=== PATIENT | female | born 1970 | race Caucasian/White ===

== ENCOUNTER 2016-11-04 05:11 | Day surgery (SDC) | payer BC ==
[2016-11-03 13:07] VITALS: BMI 24.4
[2016-11-04] MEDS ORDERED: LIDOCAINE HCL 1%, 10 MG/ML (20ML VIAL) ONE (07:09)
[2016-11-04] MEDS ORDERED: BUPIVACAINE HCL/PF 0.5% (5MG/ML) 10 ML VIAL ONE (07:10)
[2016-11-04] MEDS ORDERED: LIDOCAINE 1%/EPI 1:100000 (50 ML MULTI DOSE VIAL) ONE (07:10)
[2016-11-04] MEDS ORDERED: LIDOCAINE HCL 1%, 10 MG/ML (50 mL VIAL) IJ ONE (08:00)
[2016-11-04] MEDS ORDERED: LIDOCAINE 2%/EPINEPHRINE 1:100000 (50 ML MD VIAL) INF ONE (08:00)
[2016-11-04] MEDS ORDERED: BUPIVACAINE HCL/PF 0.5% (5MG/ML) 10 ML VIAL IJ ONE (08:23)
[2016-11-04] MEDS ORDERED: ACETAMINOPHEN WITH CODEINE 300MG/30MG TABLET PO PRN (08:33)
--- NOTE | 2016-11-04 08:33 | OP ---
Operative Note - Note: Operative Date: 11/04/16 Pre-Operative Diagnosis: R/O Malignant Melanoma Plantar Central and Sub met 1 All Left foot Operation: Exscional Biopsy Findings: Consistant with above Diagnosis Surgeon: Ishaan Sharif Anesthesia: MAC Specimens Removed: Soft tissue x 2 Estimated Blood Loss (mls): 5 Operative Report Dictated: Yes
[2016-11-04 09:37] VITALS: BP 108/56; PULSE 55; TEMP 97.6
--- NOTE | 2016-11-04 09:56 | OP ---
DATE OF OPERATION: 11/04/2016 SURGEON: Lena Reeder DPM PREOPERATIVE DIAGNOSIS: Suspicious skin lesions x2, plantar central and sub-metatarsal 1, all left foot. POSTOPERATIVE DIAGNOSIS: Suspicious skin lesions x2, plantar central and sub-metatarsal 1, all left foot. NAME OF OPERATION: Excisional biopsy x2. ANESTHESIA: Local with IV sedation. FINDINGS: Consistent with the above diagnosis. WOUND CLASSIFICATION: Clean. ESTIMATED BLOOD LOSS: Minimal. SPECIMENS REMOVED: Soft tissue. DRAINS: There were no drains. COMPLICATIONS: No complications. INDICATIONS FOR THE PROCEDURE: The patient is a pleasant 46-year-old female who has a history of pigmented lesions suddenly appearing on the bottom of her left foot. She has a history of sun exposure for many years. She does not recall when these lesions started or ever seeing them before. These lesions were watched over time, and it was noted that they changed in color and in shape. It was therefore recommended to the patient that she have an excisional biopsy to rule out malignant melanoma. The risks, benefits, and alternatives were explained to the patient several times on an outpatient basis. On her last outpatient visit, she decided that surgical management was the treatment that she desired. Patient presented this morning to [facility] for excisional biopsy x2 of suspicious lesions on the plantar aspect of her left foot. Once again, the risks, benefits, and alternatives were discussed. After all her questions were answered to her satisfaction, consent was obtained. After confirming the proper extremity to be operated on, it was then marked with my initials. The patient was then transported to the operating room. PROCEDURE FOLLOWS: The patient was identified, placed on the operating room table in the supine position and in good anatomical alignment. Time-out was called confirming the identity of the patient, the proper extremity to be operated on, and the nature of the procedure. Once confirmed, the patient was sedated by the anesthesiologist, and approximately 18 mL of a 50/50 mixture of 1% lidocaine plain and 1% lidocaine with epinephrine were infiltrated in a V-block fashion to the plantar central lesion and the lesion sub-metatarsal 1. The left foot was then prepped and draped in the usual sterile manner. Time-out was once again taken confirming the identity of the patient and the proper extremity and the nature of the procedure. Once confirmed, attention was then directed to a plantar aspect of the left foot, where utilizing a No. 15 blade, an excisional biopsy was performed. Two converging semielliptical incisions were made. The lesion on the plantar central aspect was excised down to the subcutaneous tissues. The specimen was then passed off from the surgical site, was given to the scrub nurse, and was properly labeled and sent to Pathology for growth and microscopic examination. Attention was then directed to the lesion sub-metatarsal 1, where the exact same procedure was performed. All surgical sites were then flushed with copious amounts of sterile saline. The surgical sites were closed with 3-0 Prolene. Both surgical sites were infiltrated with approximately 8 mL of 0.5% Marcaine plain. The surgical sites were then dressed with Betadine-soaked Adaptic, Betadine-soaked gauze, dry sterile gauze, and a Kimberly wrap. Patient tolerated all aspects of the procedure and anesthesia well. Patient left the operating room with hemostasis under control, and the needle, sponge, and instrument count noted to be correct. Patient was discharged to home with a postoperative shoe, postoperative instructions, and a cane. Keflex antibiotic as well as Percocet pain medications E-prescribed to her pharmacy and confirmed as received. [facility] 8 days. LENA DURAN DPM [id number]
--- NOTE | 2016-11-07 10:23 | PATH ---
Surgical Pathology Report Patient Name: JACQUELINE WHALEN [facility]. Rec. #: [id number] /Age/Gender: 1970 (Age: 46) / F Account: [id number] Location: [facility] Taken: 11/04/2016 Received: 11/04/2016 Reported: 11/07/2016 Physicians: Ishaan Sharif DPM Specimen(s) Received A: BX PLANTAR LEFT FOOT B: BX SUB 1ST METATARSAL LEFT FOOT Clinical History Malignant melanoma Final Diagnosis A. SKIN, LEFT FOOT CENTRAL PLANTAR, BIOPSY: VERRUCA. NO MELANOCYTIC NEOPLASM IDENTIFIED. B. SKIN, LEFT SUB-FIRST METATARSAL, BIOPSY: VERRUCA. NO MELANOCYTIC NEOPLASM IDENTIFIED. Electronically Signed Pablo Devi M.D. Gross Description A. Received in formalin, labeled "biopsy plantar central left foot," is a 0.4 cm in diameter palacios, circular skin punch biopsy excised to depth of 0.4 cm. The epidermal surface displays a 0.3 x 0.2 cm brown pigmented lesion. The underlying tissue is inked green and the specimen is bisected and entirely submitted in one cassette. B. Received in formalin, labeled "biopsy sub-first metatarsal left," is a 0.4 cm in diameter palacios, circular skin punch biopsy excised to depth of 0.4 cm. The underlying tissue is inked green and the specimen is bisected and entirely submitted in one cassette. 11/04/201611/04/2016
== END 2016-11-04 10:00 | disposition home or self-care (01) ==
LOC: JASU-SURG 05:11
PROVIDERS: ATTEND Podiatrist Foot & Ankle Surgery
PROC: 0HBNXZX Excision of Left Foot Skin, External Approach, Diagnostic (ICD-10-PCS; principal; 2016-11-04 08:00)
DX: B07.9 Viral wart, unspecified (principal); L98.9 Disorder of the skin and subcutaneous tissue, unspecified
CPT/HCPCS: 88305-TC; 97116-GP

== ENCOUNTER 2017-03-15 12:19 | Emergency (ER) | payer BC ==
[2017-03-15 12:24] VITALS: BP 137/78; PULSE 72; TEMP 97.7; BMI 24.3
[2017-03-15] MEDS ORDERED: TOBRAMYCIN 0.3% OPHTH SOLN 5 ML BOTTLE OD ONE (12:52)
[2017-03-15] MEDS ORDERED: TOBRAMYCIN 0.3% OPHTH SOLN 5 ML BOTTLE ONE (12:56)
--- NOTE | 2017-03-15 13:00 | PDOC ---
History of Present Illness - General Chief Complaint: Sore Throat Stated Complaint: SORE THROAT/POSSIBLE PINK EYE Time Seen by Provider: 03/15/17 12:30 History Source: Patient Exam Limitations: No Limitations Past History - Past Medical History Allergies/Adverse Reactions: Allergies Allergy/AdvReac Type Severity Reaction Status Date / Time No Known Allergies Allergy Verified 03/15/17 12:23 Anemia: No Asthma: No Cancer: No Cardiac Disorders: No CVA: No COPD: No CHF: No Dementia: No Diabetes: No (HYPOGLYCEMIA) GI Disorders: Yes (ulcer) Disorders: No HTN: No Hypercholesterolemia: No Liver Disease: No Seizures: No Thyroid Disease: No - Surgical History Orthopedic Surgery: Yes (bunionectomy) - Psycho/Social/Smoking Cessation Hx Anxiety: No Suicidal Ideation: No Smoking Status: Yes Smoking History: Former smoker Have you smoked in the past 12 months: No Number of Cigarettes Smoked Daily: 20 If you are a former smoker, when did you quit?: 6 YRS Information on smoking cessation initiated: No Hx Alcohol Use: No Drug/Substance Use Hx: No Substance Use Type: None Hx Substance Use Treatment: No *Physical Exam - Vital Signs Last Vital Signs Temp Pulse Resp BP Pulse Ox 97.7 F 72 20 137/78 100 03/15/17 12:21 03/15/17 12:21 03/15/17 12:21 03/15/17 12:21 03/15/17 12:21 - Physical Exam General Appearance: Yes: Nourished, Appropriately Dressed HEENT: positive: EOMI, ADRIANA, Pharyngeal Erythema, Other (right eye with discharge yellow crusted). 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 NML intact, Fully Oriented, Alert, Normal Mood/ Affect, Normal Response, Motor Strength 5/5 Medical Decision Making - Medical Decision Making 03/15/17 12:54 cc: right eye itchy, red with discharge, dry cough and sore throat for 2 days no fever no shortness of breath will swab for strep tobramycin right eye 03/15/17 13:20 *DC/Admit/Observation/Transfer Diagnosis at time of Disposition: Conjunctivitis of right eye due to adenovirus Pharyngitis Qualifiers: Pharyngitis/tonsillitis etiology: unspecified etiology Qualified Code(s): J02.9 - Acute pharyngitis, unspecified - Discharge Dispostion Disposition: HOME Condition at time of disposition: Good - Referrals Referrals: Eddie Helton MD [Primary Care Provider] - - Patient Instructions Additional Instructions: gargle with warm salt water 4-5 times a day take motrin as needed or tylenol for pain use the drops as directed, one drop every 4hrs for 3-5 days
== END 2017-03-15 13:49 | disposition home or self-care (01) ==
LOC: JERFT 12:19
DX: J02.9 Acute pharyngitis, unspecified (principal); B30.1 Conjunctivitis due to adenovirus; E16.2 Hypoglycemia, unspecified; Z87.891 Personal history of nicotine dependence
CPT/HCPCS: 87070; 87430; 99281-25

== ENCOUNTER 2017-06-28 09:41 | Emergency (ER) | payer BC ==
[2017-06-28 09:54] VITALS: BP 151/87; PULSE 87; TEMP 98.2; BMI 24.1
[2017-06-28] MEDS ORDERED: KETOROLAC TROMETHAMINE 60 MG/2 ML VIAL IM ONE (10:45)
[2017-06-28] MEDS ORDERED: KETOROLAC TROMETHAMINE 60 MG/2 ML VIAL ONE (10:47)
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
== END 2017-06-28 10:55 | disposition home or self-care (01) ==
LOC: JERFT 09:41
PROC: 3E0233Z Introduction of Anti-inflammatory into Muscle, Percutaneous Approach (ICD-10-PCS; principal; 2017-06-28)
DX: M77.11 Lateral epicondylitis, right elbow (principal)
CPT/HCPCS: 99281-25

== ENCOUNTER 2018-10-31 09:08 | Emergency (ER) | payer OTHER, BC ==
[2018-10-31 09:18] VITALS: BP 123/76; PULSE 85; TEMP 97.6; BMI 25.0
[2018-10-31] MEDS ORDERED: IBUPROFEN 600 MG TABLET (FP) PO ONE ×2 (09:21→09:22)
--- NOTE | 2018-10-31 09:21 | PDOC ---
History of Present Illness - General Chief Complaint: Injury Stated Complaint: FALL Time Seen by Provider: 10/31/18 09:21 History Source: Patient Exam Limitations: No Limitations Past History - Past Medical History Allergies/Adverse Reactions: Allergies Allergy/AdvReac Type Severity Reaction Status Date / Time No Known Allergies Allergy Verified 06/28/17 09:54 Home Medications: Ambulatory Orders NK [No Known Home Medication] 10/31/18 Anemia: No Asthma: No Cancer: No Cardiac Disorders: No CVA: No COPD: No CHF: No Dementia: No Diabetes: No (HYPOGLYCEMIA) GI Disorders: Yes (ulcer) Disorders: No HTN: No Hypercholesterolemia: No Liver Disease: No Seizures: No Thyroid Disease: No - Surgical History Orthopedic Surgery: Yes (bunionectomy) - Suicide/Smoking/Psychosocial Hx Smoking Status: Yes Smoking History: Never smoked Have you smoked in the past 12 months: No Number of Cigarettes Smoked Daily: 20 If you are a former smoker, when did you quit?: 6 YRS AGO Information on smoking cessation initiated: No Hx Alcohol Use: No Drug/Substance Use Hx: No Substance Use Type: None Hx Substance Use Treatment: No *Physical Exam - Vital Signs Last Vital Signs Temp Pulse Resp BP Pulse Ox 97.6 F 85 20 123/76 99 10/31/18 09:12 10/31/18 09:12 10/31/18 09:12 10/31/18 09:12 10/31/18 09:12 Moderate Sedation - Procedure Monitoring Vital Signs: Procedure Monitoring Vital Signs Temperature 97.6 F 10/31/18 09:12 Pulse Rate 85 10/31/18 09:12 Respiratory Rate 20 10/31/18 09:12 Blood Pressure 123/76 10/31/18 09:12 O2 Sat by Pulse Oximetry (%) 99 10/31/18 09:12 *DC/Admit/Observation/Transfer Diagnosis at time of Disposition: Finger pain, right - Discharge Dispostion Disposition: HOME Condition at time of disposition: Stable Decision to Admit order: No - Referrals Referrals: Tyler Veloz MD [Staff Physician] - - Patient Instructions Printed Discharge Instructions: DI for Finger Sprain Additional Instructions: The x-ray of your fingers appear normal today. I do not see any broken bones. Please wear the donnie tape for support. Please ice the fingers for 20 minute intervals today. He may take Motrin 600 mg every 6 hours for pain or swelling. If her symptoms do not improve in 2-3 days please follow-up with orthopedics. A referral has been provided. Return to the ER for worsening pain, numbness and tingling in the hand, or if you have any changes in your symptoms. - Post Discharge Activity Forms/Work/School Notes: Back to Work
== END 2018-10-31 11:08 | disposition home or self-care (01) ==
LOC: JERFT 09:08
PROC: 2W3JXYZ Immobilization of Right Finger using Other Device (ICD-10-PCS; principal; 2018-10-31)
DX: M79.644 Pain in right finger(s) (principal); Z87.891 Personal history of nicotine dependence; E11.649 Type 2 diabetes mellitus with hypoglycemia without coma; W18.39XA Other fall on same level, initial encounter; Y93.89 Activity, other specified; Y92.89 Other specified places as the place of occurrence of the external cause
CPT/HCPCS: 73110-TC-RT-FY; 73130-TC-RT-FY; 99281-25

== ENCOUNTER 2019-01-18 10:45 | Emergency (ER) | payer BC, OTHER ==
[2019-01-18 10:59] VITALS: BP 119/74; PULSE 92; TEMP 98.1; BMI 23.3
[2019-01-18] MEDS ORDERED: ALBUTEROL SO4 2.5/IPRATROPIUM 0.5 INH SOL 3 ML VIAL.NEB. NEB ONE ×2 (11:14→11:17)
[2019-01-18] MEDS ORDERED: predniSONE 20 MG TABLET (UD) PO ONE (11:14)
[2019-01-18] MEDS ORDERED: predniSONE 20 MG TABLET (UD) ONE (11:17)
--- NOTE | 2019-01-18 11:40 | PDOC ---
History of Present Illness - General Chief Complaint: Cold Symptoms Stated Complaint: SORE THROAT, Time Seen by Provider: 01/18/19 11:03 History Source: Patient Exam Limitations: No Limitations - History of Present Illness Initial Comments: 01/18/19 11:40 States had onset of cough, runny nose, fevers and chills, episodes of defervescent this past week. HAs been using OTC medications with minumal resolve. Timing/Duration: reports: getting worse, intermittent Severity: reports: moderate Modifying Factors: improves with: activity, coughing Associated Symptoms: reports: chest pain/soreness, cough, fever/chills, nasal congestion, shortness of breath, wheezing Past History - Travel Traveled outside of the country in the last 30 days: No Close contact w/someone who was outside of country & ill: No - Past Medical History Allergies/Adverse Reactions: Allergies Allergy/AdvReac Type Severity Reaction Status Date / Time No Known Allergies Allergy Verified 01/18/19 10:49 Home Medications: Ambulatory Orders Albuterol Sulfate Inhaler - [Ventolin HFA Inhaler -] 1 - 2 inh PO Q4H #1 inhaler 01/18/19 Azithromycin [Zithromax -] 250 mg PO UTDICT #6 tab 01/18/19 predniSONE [Deltasone -] 20 mg PO BID #8 tablet 01/18/19 Anemia: No Asthma: No Cancer: No Cardiac Disorders: No CVA: No COPD: No CHF: No Dementia: No Diabetes: No (HYPOGLYCEMIA) GI Disorders: Yes (ulcer) Disorders: No HTN: No Hypercholesterolemia: No Liver Disease: No Seizures: No Thyroid Disease: No - Surgical History Orthopedic Surgery: Yes (bunionectomy) - Immunization History Immunization Up to Date: Yes - Suicide/Smoking/Psychosocial Hx Smoking Status: Yes Smoking History: Former smoker Have you smoked in the past 12 months: No Number of Cigarettes Smoked Daily: 20 If you are a former smoker, when did you quit?: 8YRS AGO Information on smoking cessation initiated: No Hx Alcohol Use: No Drug/Substance Use Hx: No Substance Use Type: None Hx Substance Use Treatment: No Review of Systems - Review of Systems Able to Perform ROS?: Yes Is the patient limited Maltese proficient: Yes Constitutional: Yes: Symptoms Reported, See HPI, Malaise HEENTM: Yes: Symptoms Reported, See HPI, Nose Congestion Respiratory: Yes: Symptoms reported, See HPI, Cough, Wheezing ABD/GI: No: Symptoms Reported : No: Symptoms Reported Neurological: Yes: Symptoms reported, See HPI, Headache (mild frontal ) All Other Systems: Reviewed and Negative *Physical Exam - Vital Signs Last Vital Signs Temp Pulse Resp BP Pulse Ox 98.1 F 92 H 17 119/74 99 01/18/19 10:49 01/18/19 10:49 01/18/19 10:49 01/18/19 10:49 01/18/19 10:49 - Physical Exam General Appearance: Yes: Nourished, Appropriately Dressed, Apparent Distress, Mild Distress HEENT: positive: ADRIANA, TMs Normal (congested but landmarks visualized), Nasal Congestion, Rhinorrhea. negative: Normal ENT Inspection, Pharyngeal Erythema Neck: positive: Supple. negative: Tender, Lymphadenopathy (R), Lymphadenopathy (L) Respiratory/Chest: positive: Decreased Breath Sounds (worse on right side ), Wheezing (diminished but some tight inspiratory breath sounds). 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 Much improved and better aeration after DuoNeb and prednisone. We'll continue .We'll treat with Z- Junaid, continue albuterol and prednisone for hyperactive airway *DC/Admit/Observation/Transfer Diagnosis at time of Disposition: Bronchitis - Discharge Dispostion Disposition: HOME Condition at time of disposition: Stable Decision to Admit order: No - Prescriptions Prescriptions: Albuterol Sulfate Inhaler - [Ventolin HFA Inhaler -] 1 - 2 inh PO Q4H #1 inhaler Azithromycin [Zithromax -] 250 mg PO UTDICT #6 tab predniSONE [Deltasone -] 20 mg PO BID #8 tablet - Referrals Referrals: Minh Rodriguez MD [Primary Care Provider] - - Patient Instructions Printed Discharge Instructions: DI for Acute Bronchitis Additional Instructions: Rest, drink lots of fluids: Teas, water, soups, Pedialyte Saltwater gargles Steamy showers/seem to face break up mucus Avoid contact with others until fevers and cough resolved Lots of handwashing and good hygiene Continue [id number] medications for symptomatic relief Tylenol or Motrin for fever and pain Continue albuterol inhaler every 4-6 hours for the next 2 days then as needed for continued cough Prednisone as directed until completed Azithromycin as directed Followup with private physician in one to 2 days Return to emergency department / pediatric hospital for worsened symptoms, fevers, dehydration - Post Discharge Activity
--- NOTE | 2019-01-19 14:24 | EKG ---
Test Reason : Blood Pressure : / mmHG Vent. Rate : 087 BPM Atrial Rate : 087 BPM P-R Int : 140 ms QRS Dur : 080 ms QT Int : 354 ms P-R-T Axes : 059 050 043 degrees QTc Int : 425 ms NORMAL SINUS RHYTHM POSSIBLE LEFT ATRIAL ENLARGEMENT BORDERLINE ECG NO PREVIOUS ECGS AVAILABLE Confirmed by MD NATHAN, TIAGO ([id number]) on 01/19/2019 2:23:55 PM Referred By: Confirmed By:TIAGO EVANS MD
== END 2019-01-18 12:08 | disposition home or self-care (01) ==
LOC: JERFT 10:45 → JER 10:45 → JERFT 12:08
PROC: 3E0F7GC Introduction of Other Therapeutic Substance into Respiratory Tract, Via Natural or Artificial Opening (ICD-10-PCS; principal; 2019-01-18)
DX: J20.9 Acute bronchitis, unspecified (principal)
CPT/HCPCS: 71046-TC-FY; 93005; 93010; 99281-25

== ENCOUNTER 2020-09-10 13:36 | Emergency (ER) | payer BC ==
[2020-09-10 13:51] VITALS: TEMP 97.2; BMI 25.2
[2020-09-10] MEDS ORDERED: SODIUM CHLORIDE 1,000 ML IV STA (14:57)
[2020-09-10] MEDS ORDERED: ACETAMINOPHEN 325 MG TABLET (FP) PO ONE (14:57)
[2020-09-10] MEDS ORDERED: ACETAMINOPHEN 325 MG TABLET (FP) ONE (15:10)
[2020-09-10 15:24] LABS: HEMATOCRIT 40.1 % (32.4-45.2); HEMOGLOBIN 13.1 GM/dL (10.7-15.3); MCH 29.4 pg (25.7-33.7); MCHC 32.8 g/dl (32.0-36.0); MEAN CELL VOLUME 89.9 fl (80-96); MEAN PLT VOLUME 9.4 fl (7.5-11.1); PLATELET COUNT 284 K/MM3 (134-434); RBC 4.46 M/mm3 (3.60-5.2); RDW 14.6 % (11.6-15.6); WHITE BLOOD COUNT 8.6 K/mm3 (4.0-10.0)
[2020-09-10 15:40] LABS: CHLORIDE 107 mmol/L (98-107); SODIUM 141 mmol/L (136-145)
[2020-09-10 15:42] LABS: CALCIUM 9.4 mg/dL (8.5-10.1)
[2020-09-10 15:43] LABS: ANION GAP 9 MMOL/L (8-16); BLOOD UREA NITROGEN 8.7 mg/dL (7-18); CO2 24 mmol/L (21-32); GLUCOSE,RANDOM 81 mg/dL (74-106)
[2020-09-10 15:44] LABS: ALBUMIN 4.2 g/dl (3.4-5.0)
[2020-09-10] MEDS ORDERED: SUMAtriptan SUCCINATE 50 MG TABLET PO SCH (15:45)
[2020-09-10 15:46] LABS: CREATININE 0.6 mg/dL (0.55-1.3); SGOT/AST 23 U/L (15-37); SGPT/ALT 21 U/L (13-61)
[2020-09-10 15:48] LABS: BILIRUBIN,TOTAL 0.5 mg/dL (0.2-1); TOT PROT 7.7 g/dl (6.4-8.2)
[2020-09-10 15:49] LABS: ALK PHOS 109 U/L (45-117)
[2020-09-10 16:04] LABS: MAGNESIUM 2.4 mg/dL (1.8-2.4)
[2020-09-10 16:08] LABS: PHOSPHOROUS 3.4 mg/dL (2.5-4.9)
[2020-09-10] MEDS ORDERED: SUMAtriptan SUCCINATE 50 MG TABLET ONE (16:58)
[2020-09-10] MEDS ORDERED: ONDANSETRON 4 MG/2 ML VIAL IVPUSH ONE (17:00)
[2020-09-10 17:43] LABS: URINE APPEARANCE CLEAR; URINE BILIRUBIN NEGATIVE (NEGATIVE); URINE COLOR YELLOW; URINE GLUCOSE (UA) NEGATIVE (NEGATIVE); URINE KETONE NEGATIVE (NEGATIVE); URINE LEUK ESTERASE NEGATIVE (NEGATIVE); URINE NITRITE NEGATIVE (NEGATIVE); URINE PROTEIN NEGATIVE (NEGATIVE); URINE UROBILINOGEN 0.2 mg/dL (0.2-1.0)
[2020-09-10] MEDS ORDERED: ONDANSETRON 4 MG/2 ML VIAL ONE (17:52)
[2020-09-10 19:42] VITALS: BP 111/98; PULSE 78
== END 2020-09-10 20:00 | disposition home or self-care (01) ==
LOC: JER 13:36
PROC: 3E033NZ Introduction of Analgesics, Hypnotics, Sedatives into Peripheral Vein, Percutaneous Approach (ICD-10-PCS; principal; 2020-09-10)
PROC: 3E0337Z Introduction of Electrolytic and Water Balance Substance into Peripheral Vein, Percutaneous Approach (ICD-10-PCS; 2020-09-10)
DX: R20.2 Paresthesia of skin (principal); R53.1 Weakness; R19.7 Diarrhea, unspecified; R51.9 Headache, unspecified
CPT/HCPCS: 36415; 70450-TC; 71045-TC-FY; 80053; 81003; 82550; 83735; 84100; 84443; 84484; 85027; 87086; 93005; 93010; 99285-25

== ENCOUNTER 2021-11-23 22:48 | Emergency (ER) | payer BC ==
[2021-11-23 23:07] VITALS: BP 114/70; PULSE 100; TEMP 97.6; BMI 27.8
[2021-11-23] MEDS ORDERED: SODIUM CHLORIDE 1,000 ML IV STA (23:18)
[2021-11-23] MEDS ORDERED: ACETAMINOPHEN 1000 MG/100 ML BAG IVPB ONE (23:19)
[2021-11-23] MEDS ORDERED: ACETAMINOPHEN INJECTION 100 ML IVPB ONE (23:49)
[2021-11-23 23:55] LABS: BASO % 0.5 % (0-2.0); EOS % 0.6 % (0-4.5); HEMATOCRIT 37.1 % (32.4-45.2); HEMOGLOBIN 12.4 GM/dL (10.7-15.3); MCH 29.3 pg (25.7-33.7); MCHC 33.5 g/dl (32.0-36.0); MEAN CELL VOLUME 87.2 fl (80-96); MEAN PLT VOLUME 8.5 fl (7.5-11.1); MONO % 6.5 % (3.8-10.2); NEUT % 72.4 % (42.8-82.8); PLATELET COUNT 283 10^3/uL (134-434); RBC 4.25 M/mm3 (3.60-5.2); RDW 13.8 % (11.6-15.6); WHITE BLOOD COUNT 11.4 K/mm3 (4.0-10.0)
[2021-11-23 23:56] LABS: URINE APPEARANCE TURBID; URINE BILIRUBIN NEGATIVE (NEGATIVE); URINE COLOR YELLOW; URINE GLUCOSE (UA) NEGATIVE (NEGATIVE); URINE KETONE TRACE (NEGATIVE); URINE LEUK ESTERASE NEGATIVE (NEGATIVE); URINE NITRITE NEGATIVE (NEGATIVE); URINE PROTEIN NEGATIVE (NEGATIVE)
[2021-11-24 00:04] LABS: PROTHROMBIN TIME (PATIENT) 11.5 SEC (9.7-13.0)
[2021-11-24 00:14] LABS: ALBUMIN 3.7 g/dl (3.4-5.0); BLOOD UREA NITROGEN 17.3 mg/dL (7-18)
[2021-11-24 00:17] LABS: CREATININE 0.7 mg/dL (0.55-1.3)
[2021-11-24 00:19] LABS: BILIRUBIN,TOTAL 0.6 mg/dL (0.2-1); TOT PROT 7.1 g/dl (6.4-8.2)
[2021-11-24] MEDS ORDERED: morphine CARPU-JECT 2 MG/1 ML DISP.SYRIN IVPUSH ONE ×2 (00:32→01:22)
[2021-11-24] MEDS ORDERED: METOCLOPRAMIDE HCL INJECTION 10 MG/2 ML VIAL IVPUSH ONE (00:36)
[2021-11-24] MEDS ORDERED: ONDANSETRON 4 MG/2 ML VIAL IVPB ONE (01:23)
[2021-11-24] MEDS ORDERED: ONDANSETRON 4 MG/2 ML VIAL ONE (01:31)
[2021-11-24] MEDS ORDERED: KETOROLAC TROMETHAMINE 15 MG/ML VIAL IVPUSH ONE (02:28)
[2021-11-24] MEDS ORDERED: KETOROLAC TROMETHAMINE 15 MG/ML VIAL ONE (02:28)
[2021-11-24] MEDS ORDERED: diazePAM 5 MG TABLET PO ONE (04:08)
[2021-11-24] MEDS ORDERED: DEXAMETHASONE SOD PHOSPHATE 10 MG/1 ML VIAL IVPUSH ONE (04:08)
[2021-11-24] MEDS ORDERED: DEXAMETHASONE SOD PHOSPHATE 10 MG/1 ML VIAL ONE (04:13)
[2021-11-24] MEDS ORDERED: diazePAM 5 MG TABLET ONE (04:13)
== END 2021-11-24 04:30 | disposition home or self-care (01) ==
LOC: JER 22:48
PROC: 3E0333Z Introduction of Anti-inflammatory into Peripheral Vein, Percutaneous Approach (ICD-10-PCS; principal; 2021-11-23)
PROC: 3E033GC Introduction of Other Therapeutic Substance into Peripheral Vein, Percutaneous Approach (ICD-10-PCS; 2021-11-23)
PROC: 3E0333Z Introduction of Anti-inflammatory into Peripheral Vein, Percutaneous Approach (ICD-10-PCS; 2021-11-23)
PROC: 3E033GC Introduction of Other Therapeutic Substance into Peripheral Vein, Percutaneous Approach (ICD-10-PCS; 2021-11-23)
PROC: 3E033NZ Introduction of Analgesics, Hypnotics, Sedatives into Peripheral Vein, Percutaneous Approach (ICD-10-PCS; 2021-11-23)
PROC: 3E033NZ Introduction of Analgesics, Hypnotics, Sedatives into Peripheral Vein, Percutaneous Approach (ICD-10-PCS; 2021-11-23)
PROC: 3E033GC Introduction of Other Therapeutic Substance into Peripheral Vein, Percutaneous Approach (ICD-10-PCS; 2021-11-23)
PROC: 3E0337Z Introduction of Electrolytic and Water Balance Substance into Peripheral Vein, Percutaneous Approach (ICD-10-PCS; 2021-11-23)
DX: M54.50 Low back pain, unspecified (principal)
CPT/HCPCS: 36415; 74177-TC; 80053; 81003; 83605; 85025; 85610; 87086; 99285-25; J1100; Q9967

== ENCOUNTER 2022-04-15 04:40 | Day surgery (SDC) | payer BC ==
[2022-04-12 08:04] VITALS: BMI 28.4
[2022-04-15 10:28] VITALS: TEMP 97.5
[2022-04-15 11:06] VITALS: BP 120/75; PULSE 66
== END 2022-04-15 11:34 | disposition home or self-care (01) ==
LOC: JASU-ENDO 04:40
PROVIDERS: ATTEND Internal Medicine Gastroenterology
PROC: 0DB78ZX Excision of Stomach, Pylorus, Via Natural or Artificial Opening Endoscopic, Diagnostic (ICD-10-PCS; 2022-04-15)
PROC: 0DB98ZX Excision of Duodenum, Via Natural or Artificial Opening Endoscopic, Diagnostic (ICD-10-PCS; principal; 2022-04-15 10:00)
DX: K31.7 Polyp of stomach and duodenum (principal); K29.50 Unspecified chronic gastritis without bleeding; Z80.0 Family history of malignant neoplasm of digestive organs
CPT/HCPCS: 88305-TC; 88342-TC

== ENCOUNTER 2023-02-08 04:33 | Day surgery (SDC) | payer BC ==
[2023-02-06 12:32] VITALS: BMI 24.4
[2023-02-08 10:49] VITALS: TEMP 97.7
[2023-02-08 10:52] VITALS: BP 102/67; PULSE 65; RESP 15
== END 2023-02-08 11:11 | disposition home or self-care (01) ==
LOC: JASU-ENDO 04:33
PROVIDERS: ATTEND Internal Medicine Gastroenterology
PROC: 0DBN8ZX Excision of Sigmoid Colon, Via Natural or Artificial Opening Endoscopic, Diagnostic (ICD-10-PCS; 2023-02-08)
PROC: 0DBP8ZX Excision of Rectum, Via Natural or Artificial Opening Endoscopic, Diagnostic (ICD-10-PCS; 2023-02-08)
PROC: 0DBB8ZX Excision of Ileum, Via Natural or Artificial Opening Endoscopic, Diagnostic (ICD-10-PCS; 2023-02-08)
PROC: 0DBH8ZX Excision of Cecum, Via Natural or Artificial Opening Endoscopic, Diagnostic (ICD-10-PCS; principal; 2023-02-08 10:00)
DX: Z12.11 Encounter for screening for malignant neoplasm of colon (principal); D12.8 Benign neoplasm of rectum; K64.8 Other hemorrhoids
CPT/HCPCS: 88305-TC